=== PATIENT | female | born 1945 | race Caucasian/White ===

== ENCOUNTER 2016-06-05 09:54 | Emergency (ER) | payer MEDICARE, MEDICAID ==
[~2016-06-05] VITALS: Ht 177.8 cm; Wt 90.1 kg
[2016-06-05] MEDS ORDERED: SODIUM CHLORIDE FLUSH 3 ML SYR IV PRN (10:05)
[2016-06-05] MEDS ORDERED: SODIUM CHLORIDE FLUSH 10 ML SYR IV PRN (10:05)
[2016-06-05 10:22] LABS: BASOPHILS % (AUTO) 0 % (0-2); EOSINOPHILS # (AUTO) 0.2 10^3uL; EOSINOPHILS % (AUTO) 2 % (0-4); LYMPHOCYTES # (AUTO) 2.2 X10^3; MEAN CORPUSCULAR HEMOGLOBIN 29.6 PG (26.0-34.0); MEAN CORPUSCULAR VOLUME 90 FL (80-100); MEAN PLATELET VOLUME 10.4 FL (6.0-9.5); MONOCYTES # (AUTO) 0.8 X10^3; MONOCYTES % (AUTO) 6 % (3-11); NEUTROPHILS # (AUTO) 9.1 X10^3; NEUTROPHILS % (AUTO) 74 % (51-67); PLATELET COUNT 381 10^3uL (150-450); WHITE BLOOD COUNT 12.29 10^3uL (4.0-11.0)
[2016-06-05] MEDS ORDERED: ONDANSETRON 2 MG/ML (Z0FRAN) 2 ML VIAL IV ONE (10:25)
[2016-06-05] MEDS ORDERED: HYDROmorphone 1 MG/ML (DILAUDID) SYRINGE IV ONE (10:25)
[2016-06-05 10:34] LABS: ALBUMIN 3.6 g/dL (3.4-5.0); ALKALINE PHOSPHATASE 136 U/L (38-126); ANION GAP 14.7 MEQ/L (3-15); BUN/CREATININE RATIO 11 (10-20); CALCULATED IONIZED CALCIUM 3.6 mg/dL (3.8-4.6); TOTAL PROTEIN 7.5 g/dL (6.4-8.5)
--- NOTE | 2016-06-05 11:21 | NUR ---
Denies any change in back pain.
[2016-06-05] MEDS ORDERED: KETOROLAC 15 MG/ML (TORADOL) 1 ML VIAL IV ONE (11:40)
--- NOTE | 2016-06-05 12:19 | NUR ---
Denies change in back pain.
[2016-06-05 12:43] LABS: BILIRUBIN,URINE Negative (Negative); CLARITY,URINE Clear; GLUCOSE, URINE (UA) Negative (Negative); LEUKOCYTE ESTERASE ,URINE Negative (Negative); PH,URINE 5.5 (5.0 - 8.0)
[2016-06-05 12:44] LABS: COLOR,URINE Dark Yellow
[2016-06-05] MEDS ORDERED: HYDROcodone/APAP 5 MG/325 MG (NORCO) TAB PO ONE (13:00)
[2016-06-05 14:59] VITALS: BP 124/62
== END 2016-06-05 14:55 | disposition home or self-care (01) ==
LOC: EDUNIT# 09:54 → ED 09:55
DX: M54.89 Other dorsalgia (principal)
CPT/HCPCS: 36415; 51701; 71010; 71100; 80053; 81003; 83880; 84484; 85025; 93005; 96374; 96375; 99285; A9270; J1170; J1885; J2405; 93010; 99284